=== PATIENT | female | born 1945 | race Caucasian/White ===

== ENCOUNTER → 2018-05-19 14:46 | Outpatient (CLI) | payer MEDICARE, SELFPAY ==
--- NOTE | 2018-05-19 | DI.CT.S_ITS ---
PROCEDURE: CT LUMBAR SPINE WO CON INDICATIONS: LOWER BACK PAIN TECHNIQUE: Noncontrast 3 mm thick sections acquired from the T12 level to the sacrum. Sagittal and coronal reformats were constructed. For radiation dose reduction, the following was used: automated exposure control. COMPARISON: [facility], MR, L-SPINE WITHOUT CONTRAST, 07/14/2012, 17:30. [facility], MR, L-SPINE WITHOUT CONTRAST, 11/14/2015, 16:44. [facility] [place], CR, SPINE LUMB MIN 4VW, 05/06/2017, 17:02. FINDINGS: Image quality: Excellent. Bones: Postsurgical changes compatible with L4-L5 posterior fusion noted. Orthopedic hardware is intact. No lucency is identified at the bone hardware interface. There is mild L1-L2 and L2 on L3 degenerative retrolisthesis. There is mild L3-L4 degenerative anterolisthesis. No acute vertebral body compression fractures. No suspicious lytic or blastic bony lesions. No pars defects. T12-L1: Slight loss of disc height. Mild, diffuse disc bulge. No central stenosis. No neural foraminal narrowing. No definite neural impingement. L1-L2: Disc height is normal. Mild, diffuse disc bulge. Mild bilateral facet hypertrophy. No central stenosis. Mild bilateral neural foraminal narrowing. No definite neural impingement. L2-L3: Loss of disc height. Endplate sclerosis and subchondral cyst formation. Endplate osteophytosis noted. Moderate to severe bilateral facet hypertrophy. Mild ligamentum flavum hypertrophy. Moderate narrowing of the central canal secondary to degenerative spondylolisthesis, disc disease and posterior element hypertrophy. Severe right and [id number] left neural foraminal narrowing secondary to disc and facet disease with marked flattening deformity exiting right L2 nerve root. L3-L4: Loss of disc height. Mild, diffuse disc bulge. Moderate facet hypertrophy. Mild ligamentum flavum hypertrophy. Moderate narrowing of the central canal secondary to disc disease and facet hypertrophy. Moderate to severe bilateral neural foraminal narrowing secondary to disc and facet disease with slight flattening deformity exiting L3 nerve roots bilaterally. L4-L5: Status post fusion. No central stenosis. No neural foraminal narrowing. No definite neural impingement. L5-S1: Loss of disc height. Vacuum disc phenomenon. Endplate sclerosis and subchondral cyst formation noted. Endplate osteophytosis. Mild, diffuse disc bulge. Mild bilateral facet hypertrophy. No central stenosis. Mild right and moderate left neural foraminal narrowing secondary to disc and facet disease. No definite neural impingement. Soft tissues: No retroperitoneal masses or hematomas. Visualized aorta is normal in caliber. IMPRESSION: 1. Status post L4-L5 fusion. 2. Grade I L1-L2, L2-L3 and L3-L4 degenerative spondylolisthesis. 3. Multilevel degenerative disc disease. 4. Multilevel facet arthropathy. 5. Moderate L2-L3 and L3-L4 central canal narrowing. 5. Severe right and moderate to severe left L2-L3 neural foraminal narrowing. Moderate to severe bilateral L3-L4 neural foraminal narrowing. Mild right and moderate left L5-S1 neural foraminal narrowing. Mild bilateral L1-L2 neuroforaminal narrowing. Dictated by: Danni Garcia MD, PhD on 05/19/2018 at 17:40 Approved by: Danni Garcia MD, PhD on 05/20/2018 at 17:58
== END ==
PROVIDERS: Family Provider Family Medicine; PCP Family Medicine; Visit Provider Physical Medicine & Rehabilitation Pain Medicine
DX: M51.36 Other intervertebral disc degeneration, lumbar region (principal); M43.16 Spondylolisthesis, lumbar region; M47.816 Spondylosis without myelopathy or radiculopathy, lumbar region; M48.061 Spinal stenosis, lumbar region without neurogenic claudication; M48.07 Spinal stenosis, lumbosacral region; M54.5 Low back pain
CPT/HCPCS: 72131

== ENCOUNTER → 2018-09-30 09:42 | Outpatient (CLI) | payer MEDICARE, SELFPAY ==
[2018-09-30 10:24] LABS: Add Manual Diff / Slide Review NO; Eosinophils Percent Auto 1.2 % (2-4); Hematocrit 44.5 % (36-46); Hemoglobin 14.8 g/dL (12.0-16.0); Lymphocytes Percent Auto 25.2 % (25-40); Mean Corpuscular HGB Conc 33.2 % (30-36); Mean Corpuscular Hemoglobin 30.9 PG (26-34); Mean Corpuscular Volume 93.1 fL (80-100); Monocytes Percent Auto 8.4 % (3-14); Neutrophils Absolute Auto 3900 /uL (3000-5900); Neutrophils Percent Auto 64.2 % (50-75); Platelet Count 214 X10^3/uL (150-400); Red Blood Cell Count 4.77 X10^6/uL (4.0-5.2); Red Cell Distribution Width 13.6 % (11.6-14.8)
[2018-09-30 11:01] LABS: Alanine Aminotransferase 32 IU/L (9-52); Albumin 4.7 g/dL (3.5-5.0); Albumin Globulin Ratio 1.7 (1.0-2.8); Alkaline Phosphatase 100 U/L (38-126); Aspartate Aminotransferase 34 IU/L (14-36); Bilirubin Total 0.3 mg/dL (0.2-1.3); Blood Urea Nitrogen 21 mg/dL (7-17); Calcium 10.3 mg/dL (8.4-10.2); Carbon Dioxide 28 mmol/L (22-32); Chloride 103 mmol/L (98-107); Cholesterol 208 mg/dL (140-199); Estimated Glomerular Filt Rate 54.1 mL/min (>60); Globulin 2.7 g/dL (1.7-4.1); Glucose 97 mg/dL (80-110); HDL Cholesterol 91 mg/dL (40-60); HEMOLYSIS 15 (0-50); LDL Cholesterol Calculated 89 mg/dL (<100); Potassium 4.5 mmol/L (3.4-5.1); Sodium 142 mmol/L (137-145); Total Protein 7.4 g/dL (6.3-8.2); Triglycerides 141 mg/dL (35-150)
[2018-09-30 11:30] LABS: Thyroid Stimulating Hormone 1.63 uIU/mL (0.47-4.68)
== END ==
PROVIDERS: Family Provider Family Medicine; PCP Family Medicine; Visit Provider Family Medicine
DX: E78.5 Hyperlipidemia, unspecified (principal); I10 Essential (primary) hypertension; Z51.81 Encounter for therapeutic drug level monitoring
CPT/HCPCS: 36415; 80053; 80061; 84443; 85025

== ENCOUNTER 2018-11-26 12:35 | Day surgery (SDC) | payer MEDICARE, SELFPAY ==
[2018-11-19] MEDS: PROPARACAINE 0.5% OPHTH SOL 2 DROPS EYE-OP (13:15)
--- NOTE | 2018-11-23 13:33 | PM.PREOP ---
Pre-operative Note Interval Note History & Physical reviewed/Exam performed by Physician: Yes Changes to H&P: No
--- NOTE | 2018-11-23 13:37 | PM.OP.1 ---
Operative Date/Time/Diagnoses Date of procedure: 11/26/18 Time of procedure: 13:45 Procedure & Clinicians Procedure: Preoperative diagnoses: 1. Complex surgery with use of capsular dye. 2. Mature or advanced nuclear sclerotic ,cortical cataract with advanced posterior subcapsular plaque and poor retinal view. Poor visibility of the anterior capsule increasing surgical risks of complications. 3. Porcine Aortic valve. 4. Anxiety. Postoperative diagnoses: 1. Complex surgery with use of capsular dye and placement of a posterior chamber intraocular lens implant. 2. Need for capsular tension ring for loose zonules. Surgeon: Barbara Camargo MD Complications: none Specimen: None Implant:ZCBOO+23.0 IOL Capsular tension ring Model [id number] OS,Rodriguez Blood loss: None Anesthesia: Retrobulbar with monitored standby. Description of procedure: Dictated by: Barbara Camargo MD Copy to: [facility] Post operative diagnoses: 1. Cataract removed with use of capsular dye with placement of a posterior chamber intraocular lens. Procedure: Phacoemulsification with posterior chamber intraocular lens implant Surgeon: Barbara Camargo MD Blood loss: None Anesthesia: Retrobulbar with monitored standby Description of procedure: Patient has presented with decreased vision due to cataract which is affecting activities of daily living. The patient wants surgery to improve vision. She presents with advanced cataract with dense posterior subcapsular changes dense nuclear sclerotic changes and no previous exams here or ophthalmic records. She has multiple medical conditions including a porcine aortic valve and anxiety disorder. She states she has a high tolerance to pain medication and is worried about intraoperative discomfort. It is felt best to use a retrobulbar anesthetic with monitored standby. The patient was taken to the operating room and given IV sedation. A retrobulbar block consisting of 6 cc of 2% xylocaine without epinephrine mixed half and half with 0.5% Marcaine with 1 cc of hyaluronidase added is placed between the medial and lateral 1/3 of the inferior orbital rim. Lid akinesia is obtain with 1% xylocaine with epinephrine infiltrated along the lid margin. The eye is manually massaged for 30 sec, prepped using Betadine solution, and draped in the usual sterile fashion. Temporal approach was made, a 1 mm side-port incision was performed 90 degrees from the planned corneal wound. Phenylephrine 1.5% mixed with 1% xylocaine 0.2 cc was placed into the anterior chamber. An air bubble was placed and Visudyne dye was placed to improve visibility of the anterior capsule. The dye was irrigated out to reduce bubbles. Viscoat followed by Healon was then placed. A 2.6 mm clear incision with a 2.6 mm blade was placed. A 360 degree capsulorrhexis style capsulotomy was then performed with a cystitome needle on a Healon. Zonules were loose but held intact during the surgery. Hydrodelineation and hydrodissection were performed. The phacoemulsification unit is introduced, and sculpting used to groove the central lens. It is then removed in chopping mode. Epi nucleus is removed with epinuclear mode and irrigation aspiration was used to remove the peripheral cortex. The posterior capsule is gently polished. The intraocular lens is selected, inspected, power confirmed, and placed in the posterior chamber. To improve capsular bag stability a 13 mm capsular tension ring was opened, inspected and inserted into the capsular bag through the inserting device. Excellent centration without complication. Proable pseudoexfoliation syndrome.The pupil was constricted with Miostat. The wound was stromally hydrated and tested for leaks, there was none and was left sutureless. Vigamox 0.1 cc was placed into the anterior chamber. Kenalog 0.2 cc was placed in the superior subconjunctival space. A drop of antibiotic and was placed and the eye was patched and shielded. The patient was stable and returned to the recovery room in excellent condition. Dictated by: Barbara Camargo MD Copy to: [facility] Same procedure as scheduled: No Indications: Used capsular tension ring to improve capsular stability due to findings during surgery. No complications.
[2018-11-26 13:15] VITALS: BP 130/67; PULSE 63; RESP 16; TEMP 36.3; O2SAT 99
[2018-11-26] MEDS: CATARACT EYE COMPOUND (10 DROPS/SYRINGE) 3 DROPS EYE-OP ×3 (13:20→13:30)
[2018-11-26 13:32] VITALS: BMI 23.3
[2018-11-26] MEDS: BALANCED SALT IRRIG SOLN NO.2 15 ML IRR (14:40)
[2018-11-26] MEDS: CARBACHOL 1.5 ML VIAL INJ (14:40)
[2018-11-26] MEDS: HYALURONATE SODIUM 10 MG/ML SYRINGE INJ (14:40)
[2018-11-26] MEDS: CHONDROIDTIN/SOD HYALURONATE 1.05 ML SYRINGE INTRAOCULA (14:40)
[2018-11-26] MEDS: LIDOCAINE 1% W/EPI INJ 20 ML INJ (14:41)
[2018-11-26] MEDS: MOXIFLOXACIN OPHTH DROPS 3 ML BOTTLE 2 DROPS INJ (14:41)
[2018-11-26] MEDS: NEOMYCIN/POLY/DEX OPHTH OINT 1 APPLIC EYE-LEFT (14:42)
[2018-11-26] MEDS: PHENYLEPHRINE/LIDOCAINE VIAL (OR) 0.2 ML EYE-OP (14:42)
[2018-11-26] MEDS: OFLOXACIN 0.3% OPHTH 5 ML 2 DROPS EYE-LEFT (14:42)
[2018-11-26] MEDS: TRYPAN BLUE 0.5 ML SYRINGE INJ (14:43)
[2018-11-26] MEDS: BALANCED SALT IRRIG SOLN NO.2 500 ML, EPINEPHrine 1 MG IRR (14:43)
[2018-11-26] MEDS: TRIAMCINOLONE 50 MG/5 ML VIAL INJ (14:43)
[2018-11-26] MEDS: LIDOCAINE 2% 4 ML, BUPIVACAINE 0.5% (PF) 4 ML, HYALURONIDASE 150 UNIT INJ (14:44)
[2018-11-26 15:10] VITALS: BP 143/73; PULSE 68; RESP 20; TEMP 36.5; O2SAT 100
== END 2018-11-26 15:25 | disposition home or self-care (01) ==
LOC: OR 12:39
PROVIDERS: Family Provider Family Medicine; PCP Family Medicine; Visit Provider Ophthalmology
PROC: (CPT 66982; principal; 2018-11-26 13:45)
DX: H25.12 Age-related nuclear cataract, left eye (principal); F41.9 Anxiety disorder, unspecified; E78.5 Hyperlipidemia, unspecified; I51.9 Heart disease, unspecified
CPT/HCPCS: 66982; J0171; J2250; J3010; J3301; J3470

== ENCOUNTER 2018-12-17 13:36 | Day surgery (SDC) | payer MEDICARE, SELFPAY ==
--- NOTE | 2018-12-04 08:57 | PM.PREOP ---
Pre-operative Note Interval Note History & Physical reviewed/Exam performed by Physician: Yes Changes to H&P: No
--- NOTE | 2018-12-13 14:32 | PM.PREOP ---
Pre-operative Note Interval Note History & Physical reviewed/Exam performed by Physician: Yes Changes to H&P: No
--- NOTE | 2018-12-13 14:32 | PM.OP.1 ---
Operative Date/Time/Diagnoses Date of procedure: 12/17/18 Time of procedure: 13:45 Procedure & Clinicians Procedure: Preoperative diagnoses:1. Mature right nuclear sclerotic and cortical cataract with need for Malyugin ring and capsular dye. 2. History of zonular instability with neeed for a cpasular tension ring.3. Chronic back pain. Postoperative diagnoses:1. Complex cataract removed by phacoemulsification with use of capsular dye and a capsular tension ring with placement of posterior chamber intraocular lens.Procedure: Phacoemulsification with use of capsular dye with placement of a posterior chamber IOL and capsular tension ring. Surgeon: Barbara Camargo MD Complications: None Specimen: None Implant: ZCBOO+22.5. Capsular tension ring. Model:[id number]. Blood loss: None. None Anesthesia: Retrobulbar with monitored standby Description of procedure: Patient presents with a complaint of decreased vision due to cataract which is affecting activities of daily living. The patient wants surgery to improve vision.The patient was taken to the operating room and given IV sedation. A retrobulbar block consisting of 6 cc of 2% xylocaine without epinephrine mixed half and half with 0.5% Marcaine with 1 cc of hyaluronidase added is placed between the medial and lateral 1/3 of the inferior orbital rim. Lid akinesia is obtain with 1% xylocaine with epinephrine infiltrated along the lid margin. The eye is manually massaged for 30 sec, prepped using Betadine solution, and draped in the usual sterile fashion.Temporal approach was made, a 1 mm side-port incision was made 90? from the proposed clear corneal incision position. An air bubble was placed and Visudyne capsular dye was used to improve visibility due to poor red reflex. Phenylephrine 1.5% mixed with 1% xylocaine 0.2 cc was placed into the anterior chamber. Viscoat followed by Healon was then placed. A 2.6 mm clear incision with a 2.6 mm blade was placed. The pupil was adequately dilated and a 360 degree capsulorrhexis style capsulotomy then performed with a cystitome needle on a Healon aided by capsular dye. Zonules were loose but remained intact. Hydrodelineation and hydrodissection were performed. The phacoemulsification unit is introduced, and sculpting notice used to groove the central lens. It is then removed in chopping mode. Epi nucleus is removed with epinuclear mode and irrigation aspiration was used to remove the peripheral cortex. On attempted removal of peripheral cortex it was felt the zonules were weak and therefore the procedure was stopped, and a capsular tension ring inspected and placed into the posterior chamber with additional Viscoat. It was dialed into position in the posterior bag. At this point there is minimal peripheral cortex which was gently removed leaving al amount was trapped by the core of the capsular tension ring. Extra viscoelastic of Healon followed by Provisc was then placed into the posterior chamber. The posterior capsule is polished though a small inferior capsular plaque could not be removed. The intraocular lens is selected, inspected, power confirmed, and placed in the posterior chamber. All viscoelastic was then gently irrigated from the anterior chamber. The pupil was constricted with Miostat. The wound was stromally hydrated and tested for leaks, there was none and it was left sutureless. Vigamox 0.1 cc was placed into the anterior chamber. Kenalog 0.2 cc was placed in the superior subconjunctival space. A drop of antibiotic and was placed and the eye was patched and shielded. The patient was stable and returned to the recovery room in excellent condition.Dictated by: Barbara Camargo MD Copy to: [facility] cancel that
[2018-12-17] MEDS: PROPARACAINE 0.5% OPHTH SOL 2 DROPS EYE-OP (14:10)
[2018-12-17 14:15] VITALS: BP 151/77; PULSE 64; RESP 16; TEMP 36.6; O2SAT 100
[2018-12-17] MEDS: CATARACT EYE COMPOUND (10 DROPS/SYRINGE) 3 DROPS EYE-OP (14:26)
[2018-12-17 14:30] VITALS: BMI 50.7
[2018-12-17 14:36] VITALS: BMI 50.7
[2018-12-17] MEDS: PHENYLEPHRINE/LIDOCAINE VIAL (OR) 0.2 ML EYE-OP (14:59)
[2018-12-17] MEDS: MOXIFLOXACIN OPHTH DROPS 3 ML BOTTLE 2 DROPS INJ (14:59)
[2018-12-17] MEDS: HYALURONATE SODIUM 10 MG/ML SYRINGE INJ (15:00)
[2018-12-17] MEDS: BALANCED SALT IRRIG SOLN NO.2 15 ML IRR (15:00)
[2018-12-17] MEDS: TRIAMCINOLONE 50 MG/5 ML VIAL INJ (15:00)
[2018-12-17] MEDS: CHONDROIDTIN/SOD HYALURONATE 1.05 ML SYRINGE INTRAOCULA ×2 (15:00→15:34)
[2018-12-17] MEDS: TRYPAN BLUE 0.5 ML SYRINGE INJ (15:01)
[2018-12-17] MEDS: NEOMYCIN/POLY/DEX OPHTH OINT 1 APPLIC EYE-RIGHT (15:01)
[2018-12-17] MEDS: OFLOXACIN 0.3% OPHTH 5 ML 2 DROPS EYE-RIGHT (15:01)
[2018-12-17] MEDS: BALANCED SALT IRRIG SOLN NO.2 500 ML, EPINEPHrine 1 MG IRR (15:01)
[2018-12-17] MEDS: LIDOCAINE 2% 4 ML, BUPIVACAINE 0.5% (PF) 4 ML, HYALURONIDASE 150 UNIT INJ (15:02)
[2018-12-17] MEDS: LIDOCAINE 1% W/EPI INJ 20 ML INJ (15:02)
[2018-12-17] MEDS: CARBACHOL 1.5 ML VIAL INJ (15:03)
[2018-12-17 15:45] VITALS: BP 160/84; PULSE 60; RESP 16; TEMP 36.9; O2SAT 100
== END 2018-12-17 15:59 | disposition home or self-care (01) ==
PROVIDERS: PCP Family Medicine; Visit Provider Ophthalmology
PROC: (CPT 66982; principal; 2018-12-17 14:45)
DX: H25.811 Combined forms of age-related cataract, right eye (principal); I10 Essential (primary) hypertension; F41.9 Anxiety disorder, unspecified
CPT/HCPCS: 66982; J0171; J2704; J3301; J3470

== ENCOUNTER → 2019-02-24 15:12 | Outpatient (CLI) | payer MEDICARE, SELFPAY ==
--- NOTE | 2019-02-24 | DI.MG.S_ITS ---
BILATERAL DIGITAL SCREENING MAMMOGRAM 3D/2D WITH CAD: 02/24/2019 CLINICAL: Routine screening. Comparison is made to exams dated: 02/22/2018 mammogram, 11/26/2016 mammogram, and 09/27/2015 mammogram - [facility]. There are scattered fibroglandular elements in both breasts. Current study was also evaluated with a Computer Aided Detection (CAD) system. No significant masses, calcifications, or other findings are seen in either breast. There has been no significant interval change. IMPRESSION: NEGATIVE There is no mammographic evidence of malignancy. A 1 year screening mammogram is recommended. This exam was interpreted at Station ID: [id number]. NOTE: For mammograms, a report in lay terms will be sent to the patient. Approximately 15% of breast malignancies will not be visualized mammographically. In the management of a palpable breast mass, a negative mammogram must not discourage biopsy of a clinically suspicious lesion. Electronically Signed By: Robe vyas/[place]:02/24/2019 18:14:26 letter sent: Normal Exam ACR BI-RADS Category 1: Negative 3341F
== END ==
PROVIDERS: PCP Family Medicine; Visit Provider Family Medicine
DX: Z12.31 Encounter for screening mammogram for malignant neoplasm of breast (principal)
CPT/HCPCS: 77063; 77067

== ENCOUNTER → 2019-04-17 09:54 | Outpatient (CLI) | payer MEDICARE, SELFPAY ==
[2019-04-17 12:22] LABS: Alanine Aminotransferase 23 IU/L (9-52); Albumin 4.8 g/dL (3.5-5.0); Alkaline Phosphatase 123 U/L (38-126); Aspartate Aminotransferase 32 IU/L (14-36); Bilirubin Total 0.3 mg/dL (0.2-1.3); Blood Urea Nitrogen 30 mg/dL (7-17); Calcium 10.3 mg/dL (8.4-10.2); Carbon Dioxide 29 mmol/L (22-32); Chloride 100 mmol/L (98-107); Cholesterol 209 mg/dL (140-199); Estimated Glomerular Filt Rate 54.1 mL/min (>60); Globulin 2.4 g/dL (1.7-4.1); Glucose 99 mg/dL (80-110); HDL Cholesterol 67 mg/dL (40-60); HEMOLYSIS < 15 (0-50); LDL Cholesterol Calculated 99 mg/dL (<100); Sodium 137 mmol/L (137-145); Total Protein 7.2 g/dL (6.3-8.2); Triglycerides 215 mg/dL (35-150)
[2019-04-17 12:25] LABS: Potassium 5.6 mmol/L (3.4-5.1)
[2019-04-17 12:54] LABS: Thyroid Stimulating Hormone 1.92 uIU/mL (0.47-4.68)
== END ==
PROVIDERS: PCP Family Medicine; Visit Provider Family Medicine
DX: E78.5 Hyperlipidemia, unspecified (principal); I10 Essential (primary) hypertension; Z51.81 Encounter for therapeutic drug level monitoring
CPT/HCPCS: 36415; 80053; 80061; 84443

== ENCOUNTER → 2019-04-21 16:33 | Outpatient (CLI) | payer MEDICARE, SELFPAY ==
[2019-04-21 18:23] LABS: Alanine Aminotransferase 22 IU/L (9-52); Albumin 4.8 g/dL (3.5-5.0); Albumin Globulin Ratio 1.7 (1.0-2.8); Alkaline Phosphatase 119 U/L (38-126); Aspartate Aminotransferase 33 IU/L (14-36); BUN Creatinine Ratio 23.6 (6-22); Bilirubin Total 0.3 mg/dL (0.2-1.3); Blood Urea Nitrogen 26 mg/dL (7-17); Calcium 10.4 mg/dL (8.4-10.2); Carbon Dioxide 28 mmol/L (22-32); Chloride 99 mmol/L (98-107); Estimated Glomerular Filt Rate 48.4 mL/min (>60); Globulin 2.8 g/dL (1.7-4.1); Glucose 94 mg/dL (80-110); HEMOLYSIS 19 (0-50); Sodium 136 mmol/L (137-145); Total Protein 7.6 g/dL (6.3-8.2)
== END ==
PROVIDERS: PCP Family Medicine; Visit Provider Family Medicine
DX: E87.5 Hyperkalemia (principal)
CPT/HCPCS: 36415; 80053

== ENCOUNTER 2019-06-25 11:08 | Day surgery (SDC) | payer MEDICARE, SELFPAY ==
--- NOTE | 2019-06-25 | PATH_ITS ---
[facility] Accession Number: [id number] . 01 Material submitted: . esophagus - RANDOM BIOPSIES OF DISTAL ESOPHAGUS . 01 Clinical history: . DYSPHAGIA, UNSPECIFIED . 02 Diagnosis: Random Biopsies, Distal Esophagus: Tissue from squamocolumnar junction mucosa, negative for specialized metaplasia of Cotter's-type esophagus. Chronic inflammation with reactive epithelial changes, but negative for dysplasia and malignancy. Negative for squamous intraepithelial eosinophils. . . MRV/06/26/2019 . 02 Electronically signed: . Taco Babb MD, Pathologist NPI- [id number] . 01 Gross description: . RANDOM BIOPSIES OF DISTAL ESOPHAGUS: Received in formalin are 2 fragment(s) of edwards, soft tissue measuring 0.1 x 0.1 x 0.1 cm to 0.3 x 0.2 x 0.2 cm which is entirely submitted and submitted entirely in 1 cassette(s) /DMC /DMC . 02 Pathologist provided ICD-10: R10.13 . 02 CPT . 285216 Performed at: 01 [facility] [address], [place], [place] [id number] MD Christoph Lin MD Phone: [phone] Performed at: 02 [facility] [address] [place], [place] [id number] MD Lia Montez MD Phone: [phone]
[2019-06-25 12:16] VITALS: BP 156/65; PULSE 57; RESP 14; TEMP 36.9; O2SAT 100; BMI 24.2
--- NOTE | 2019-06-25 12:29 | PM.PREOP ---
Pre-operative Note Interval Note History & Physical reviewed/Exam performed by Physician: Yes Changes to H&P: No ASA Class (for procedural sedation): II
[2019-06-25] MEDS: SODIUM CHLORIDE 0.9% 1,000 ML 200 ML IV (12:39)
[2019-06-25] MEDS: LIDOCAINE 4% SOLN 50 ML 20 ML TOP (13:05)
[2019-06-25] MEDS: fentaNYL 250 MCG/5 ML INJ IV (13:10)
[2019-06-25] MEDS: MIDAZOLAM 5 MG/5 ML VIAL IV (13:10)
--- NOTE | 2019-06-25 13:19 | PM.OP.ENDO ---
Operative Date/Time/Diagnoses Date of procedure: 06/25/19 Time of procedure: 13:19 Pre-op diagnosis: dysphagia Post-op diagnosis: same Procedure & Clinicians Study performed: Esophagoduodenoscopy Same procedure as scheduled: Yes Indications: 73-year-old female with chronic gastroesophageal reflux with recent dysphagia to solid foods. She presents for screening EEG with possible dilation Surgeon: Melvin Chavez Procedure Notes SCOAP/Timeout: performed Procedure in detail: The scope was carefully inserted into the mouth and the posterior oropharynx. It was advanced through the esophagus and into the stomach. The stomach demonstrated mild gastritis. The scope was retroflexed and there was no significant hiatal hernia. The pylorus was inspected and was free of ulcerative disease. The scope was then carefully withdrawn through the esophagus. At the GE junction there was question of Cotter's with some salmon appearing tissue at the Z-line. Several biopsies were taken of this distal esophagus. There was no evidence of stricture within the esophagus the scope passed easily through all of it. The scope was carefully withdrawn after ensuring that the biopsy sites were hemostatic. Patient tolerated procedure well. Sedation minutes: 13 Findings: gastritis Specimen(s): other (Distal esophagus Z line) Impression: Gastritis. Rule out Cotter's. No evidence of esophageal stricture. Post-procedure Recommendations: Reflux diet and Continue medication(s) Disposition: same day surgery
[2019-06-25 13:23] VITALS: BP 169/67; PULSE 70; RESP 14; TEMP 36.1; O2SAT 96
[2019-06-25 13:30] VITALS: BP 162/71; PULSE 64; RESP 14; O2SAT 94
[2019-06-25 13:34] VITALS: BP 158/70; PULSE 64; RESP 14; O2SAT 94
[2019-06-25 13:38] VITALS: BP 149/65; PULSE 64; RESP 16; O2SAT 94
[2019-06-25 13:45] VITALS: BP 136/66; PULSE 66; RESP 16; TEMP 36.7; O2SAT 100
--- NOTE | 2019-06-25 15:23 | SUR.PHASEII ---
1820 Dr Chavez talked with pt before discharge, assessed belly. Pt left when ready and left in stable condition.
== END 2019-06-25 13:55 | disposition home or self-care (01) ==
PROVIDERS: Family Provider Family Medicine; PCP Family Medicine; Visit Provider Surgery
PROC: 0DJ08ZZ Inspection of Upper Intestinal Tract, Via Natural or Artificial Opening Endoscopic (ICD-10-PCS; CPT 43235; principal; 2019-06-25 12:30)
DX: K29.70 Gastritis, unspecified, without bleeding (principal); I25.10 Atherosclerotic heart disease of native coronary artery without angina pectoris; E78.5 Hyperlipidemia, unspecified; I10 Essential (primary) hypertension; K58.9 Irritable bowel syndrome, unspecified
CPT/HCPCS: 43239; 88305; 99152; J2250; J3010

== ENCOUNTER → 2019-10-17 11:00 | Outpatient (CLI) | payer MEDICARE, SELFPAY ==
[2019-10-17 12:02] LABS: Hematocrit 42.3 % (36-46); Hemoglobin 14.1 g/dL (12.0-16.0); Mean Corpuscular HGB Conc 33.4 % (30-36); Mean Corpuscular Volume 92.8 fL (80-100); Platelet Count 217 X10^3/uL (150-400); Red Blood Cell Count 4.55 X10^6/uL (4.0-5.2); Red Cell Distribution Width 13.6 % (11.6-14.8); White Blood Cell Count 6.8 X10^3/uL (4.5-11.0)
[2019-10-17 12:22] LABS: Alanine Aminotransferase 17 IU/L (<35); Albumin 4.8 g/dL (3.5-5.0); Alkaline Phosphatase 112 U/L (38-126); Aspartate Aminotransferase 29 IU/L (14-36); BUN Creatinine Ratio 22.3 (6-22); Bilirubin Total 0.5 mg/dL (0.2-1.3); Blood Urea Nitrogen 29 mg/dL (7-17); Calcium 10.4 mg/dL (8.4-10.2); Carbon Dioxide 27 mmol/L (22-32); Chloride 103 mmol/L (98-107); Cholesterol 193 mg/dL (140-199); Estimated Glomerular Filt Rate 39.8 mL/min (>60); Globulin 2.4 g/dL (1.7-4.1); Glucose 102 mg/dL (80-110); HDL Cholesterol 53 mg/dL (40-60); HEMOLYSIS < 15 (0-50); LDL Cholesterol Calculated 99 mg/dL (<100); Sodium 140 mmol/L (137-145); Total Protein 7.2 g/dL (6.3-8.2); Triglycerides 206 mg/dL (35-150)
[2019-10-17 12:40] LABS: Neutrophils Absolute Manual 4148 /uL (3000-5900); RBC Morphology Normal Morphology; Total Cells Counted 100
[2019-10-17 12:42] LABS: Potassium 5.4 mmol/L (3.4-5.1)
[2019-10-17 12:52] LABS: Thyroid Stimulating Hormone 2.36 uIU/mL (0.47-4.68)
== END ==
PROVIDERS: Family Provider Family Medicine; PCP Family Medicine; Visit Provider Family Medicine
DX: E78.5 Hyperlipidemia, unspecified (principal); I10 Essential (primary) hypertension
CPT/HCPCS: 36415; 80053; 80061; 84443; 85025

== ENCOUNTER → 2020-06-21 09:47 | Outpatient (CLI) | payer MEDICARE, SELFPAY ==
[2020-06-21 12:20] LABS: BUN Creatinine Ratio 17.3 (6-22); Blood Urea Nitrogen 18 mg/dL (7-17); Calcium 10.1 mg/dL (8.4-10.2); Carbon Dioxide 29 mmol/L (22-32); Chloride 100 mmol/L (98-107); Estimated Glomerular Filt Rate 51.5 mL/min (>60); Glucose 92 mg/dL (80-110); HEMOLYSIS < 15 (0-50); Potassium 5.4 mmol/L (3.4-5.1); Sodium 134 mmol/L (137-145)
[2020-06-22 07:36] LABS: Calcium 9.9 mg/dL (8.7-10.3); Parathyroid Hormone, Intact 72 pg/mL (15-65)
== END ==
PROVIDERS: Family Provider Family Medicine; PCP Family Medicine; Referring Provider Family Medicine; Visit Provider Family Medicine
DX: E83.52 Hypercalcemia (principal); E87.5 Hyperkalemia
CPT/HCPCS: 36415; 80048; 82310; 83970

== ENCOUNTER → 2020-07-30 09:28 | Outpatient (CLI) | payer MEDICARE, SELFPAY ==
[2020-07-30 11:23] LABS: BUN Creatinine Ratio 26.8 (6-22); Blood Urea Nitrogen 26 mg/dL (7-17); Calcium 9.9 mg/dL (8.4-10.2); Carbon Dioxide 29 mmol/L (22-32); Chloride 102 mmol/L (98-107); Cholesterol 193 mg/dL (140-199); Estimated Glomerular Filt Rate 55.8 mL/min (>60); Glucose 91 mg/dL (80-110); HDL Cholesterol 56 mg/dL (40-60); HEMOLYSIS 16 (0-50); LDL Cholesterol Calculated 81 mg/dL (<100); Potassium 4.8 mmol/L (3.4-5.1); Sodium 137 mmol/L (137-145); Triglycerides 279 mg/dL (35-150)
[2020-07-30 11:52] LABS: TSH w/ Reflex to FT4 2.93 uIU/mL (0.47-4.68)
[2020-07-31 08:36] LABS: Parathyroid Hormone Int 54 pg/mL (15-65)
== END ==
PROVIDERS: Family Provider Family Medicine; PCP Family Medicine; Referring Provider Family Medicine; Visit Provider Family Medicine
DX: E21.0 Primary hyperparathyroidism (principal); E83.52 Hypercalcemia; E87.5 Hyperkalemia; L65.9 Nonscarring hair loss, unspecified; E78.5 Hyperlipidemia, unspecified
CPT/HCPCS: 36415; 80048; 80061; 83970; 84443

== ENCOUNTER → 2020-10-15 14:54 | Outpatient (CLI) | payer MEDICARE, SELFPAY ==
--- NOTE | 2020-10-15 14:56 | DI.MG.S_ITS ---
BILATERAL DIGITAL SCREENING MAMMOGRAM 3D/2D WITH CAD: 10/15/2020 CLINICAL: Routine screening. Comparison is made to exams dated: 02/24/2019 mammogram, 02/22/2018 mammogram, and 11/26/2016 mammogram - [facility]. There are scattered fibroglandular elements in both breasts. Current study was also evaluated with a Computer Aided Detection (CAD) system. No significant masses, calcifications, or other findings are seen in either breast. There has been no significant interval change. IMPRESSION: NEGATIVE There is no mammographic evidence of malignancy. A 1 year screening mammogram is recommended. This exam was interpreted at Station ID: [id number]. NOTE: For mammograms, a report in lay terms will be sent to the patient. Approximately 15% of breast malignancies will not be visualized mammographically. In the management of a palpable breast mass, a negative mammogram must not discourage biopsy of a clinically suspicious lesion. Electronically Signed By: Robe vyas/[place]:10/17/2020 07:55:58 letter sent: Normal Exam ACR BI-RADS Category 1: Negative [id number]
== END ==
PROVIDERS: Family Provider Family Medicine; PCP Family Medicine; Referring Provider Family Medicine; Visit Provider Family Medicine
DX: Z12.31 Encounter for screening mammogram for malignant neoplasm of breast (principal)
CPT/HCPCS: 77063; 77067

== ENCOUNTER → 2020-12-16 14:32 | Outpatient (CLI) | payer MEDICARE, SELFPAY ==
--- NOTE | 2020-12-16 14:33 | DI.RAD.S_ITS ---
PROCEDURE: XR DEXA AXIAL SKELETON INDICATIONS: Post Menopause COMPARISON: None. FINDINGS: This blank DEXA report has been sent in error by the PACS system. The correct and complete report will be forthcoming in 1-2 days. Thank you for your patience and understanding. Dictated by: Danni Garcia MD, PhD on 12/16/2020 at 16:54 Approved by: Danni Garcia MD, PhD on 12/16/2020 at 16:54
== END ==
PROVIDERS: Family Provider Family Medicine; PCP Family Medicine; Referring Provider Family Medicine; Visit Provider Family Medicine
DX: M85.851 Other specified disorders of bone density and structure, right thigh (principal); Z78.0 Asymptomatic menopausal state; Z90.722 Acquired absence of ovaries, bilateral; Z82.62 Family history of osteoporosis
CPT/HCPCS: 77080

== ENCOUNTER → 2021-01-09 15:33 | Outpatient (CLI) | payer MEDICARE, SELFPAY ==
[2021-01-09] MEDS: COVID-19 VACC, Ad26(JANSSEN)/PF 0.5 ML IM (15:43)
== END ==
PROVIDERS: Family Provider Family Medicine; PCP Family Medicine; Visit Provider Internal Medicine
DX: Z23 Encounter for immunization (principal)
CPT/HCPCS: 0031A; 91303

== ENCOUNTER → 2021-02-21 15:26 | Outpatient (CLI) | payer MEDICARE, SELFPAY ==
[2021-02-21 17:25] LABS: BUN Creatinine Ratio 32.4 (6-22); Blood Urea Nitrogen 34 mg/dL (7-17); Calcium 10.4 mg/dL (8.4-10.2); Carbon Dioxide 24 mmol/L (22-32); Chloride 96 mmol/L (98-107); Estimated Glomerular Filt Rate 50.8 mL/min (>60); Glucose 87 mg/dL (80-110); HEMOLYSIS < 15 (0-50); Potassium 5.1 mmol/L (3.4-5.1); Sodium 131 mmol/L (137-145)
== END ==
PROVIDERS: Family Provider Family Medicine; PCP Family Medicine; Referring Provider Internal Medicine; Visit Provider Internal Medicine
DX: I10 Essential (primary) hypertension (principal)
CPT/HCPCS: 36415; 80048

== ENCOUNTER → 2021-03-08 16:22 | Outpatient (CLI) | payer MEDICARE, SELFPAY ==
[2021-03-08 17:59] LABS: BUN Creatinine Ratio 24.5 (6-22); Blood Urea Nitrogen 27 mg/dL (7-17); Calcium 10.2 mg/dL (8.4-10.2); Carbon Dioxide 26 mmol/L (22-32); Chloride 98 mmol/L (98-107); Estimated Glomerular Filt Rate 48.2 mL/min (>60); Glucose 101 mg/dL (80-110); HEMOLYSIS < 15 (0-50); Sodium 132 mmol/L (137-145)
== END ==
PROVIDERS: Internal Medicine; Family Provider Family Medicine; PCP Family Medicine; Referring Provider Family Medicine; Visit Provider Family Medicine
DX: I10 Essential (primary) hypertension (principal)
CPT/HCPCS: 36415; 80048

== ENCOUNTER → 2021-04-15 10:29 | Outpatient (CLI) | payer MEDICARE, SELFPAY ==
[2021-04-15 11:58] LABS: Alanine Aminotransferase 33 IU/L (<35); Albumin 4.3 g/dL (3.5-5.0); Albumin Globulin Ratio 1.9 (1.0-2.8); Alkaline Phosphatase 112 U/L (38-126); Aspartate Aminotransferase 40 IU/L (14-36); BUN Creatinine Ratio 22.6 (6-22); Bilirubin Total 0.2 mg/dL (0.2-1.3); Blood Urea Nitrogen 21 mg/dL (7-17); Calcium 10.4 mg/dL (8.4-10.2); Carbon Dioxide 26 mmol/L (22-32); Chloride 101 mmol/L (98-107); Cholesterol 143 mg/dL (140-199); Estimated Glomerular Filt Rate 58.5 mL/min (>60); Globulin 2.3 g/dL (1.7-4.1); Glucose 92 mg/dL (80-110); HDL Cholesterol 69 mg/dL (40-60); HEMOLYSIS < 15 (0-50); LDL Cholesterol Calculated 44 mg/dL (<100); Sodium 135 mmol/L (137-145); Total Protein 6.6 g/dL (6.3-8.2); Triglycerides 148 mg/dL (35-150)
[2021-04-15 12:04] LABS: Microalbumin Urine Random 3.2 mg/dL (0-1.6)
== END ==
PROVIDERS: Family Provider Family Medicine; PCP Family Medicine; Referring Provider Internal Medicine; Visit Provider Internal Medicine
DX: I25.10 Atherosclerotic heart disease of native coronary artery without angina pectoris (principal); I10 Essential (primary) hypertension; N18.30 Chronic kidney disease, stage 3 unspecified
CPT/HCPCS: 36415; 80053; 80061; 82043; 82570

== ENCOUNTER → 2021-05-25 13:25 | Outpatient (CLI) | payer MEDICARE, SELFPAY ==
[2021-05-25 14:06] LABS: BUN Creatinine Ratio 24.5 (6-22); Blood Urea Nitrogen 24 mg/dL (7-17); Calcium 10.2 mg/dL (8.4-10.2); Carbon Dioxide 25 mmol/L (22-32); Chloride 101 mmol/L (98-107); Glucose 105 mg/dL (80-110); HEMOLYSIS < 15 (0-50); Sodium 134 mmol/L (137-145)
[2021-05-25 14:08] LABS: Potassium 5.4 mmol/L (3.4-5.1)
== END ==
PROVIDERS: PCP Family Medicine; Referring Provider Internal Medicine; Visit Provider Internal Medicine
DX: E87.5 Hyperkalemia (principal)
CPT/HCPCS: 36415; 80048

== ENCOUNTER → 2021-06-19 16:06 | Outpatient (CLI) | payer MEDICARE, SELFPAY ==
[2021-06-19 17:10] LABS: Alanine Aminotransferase 128 IU/L (<35); Albumin 4.4 g/dL (3.5-5.0); Albumin Globulin Ratio 1.7 (1.0-2.8); Alkaline Phosphatase 212 U/L (38-126); Aspartate Aminotransferase 121 IU/L (14-36); Bilirubin Total 0.2 mg/dL (0.2-1.3); Blood Urea Nitrogen 18 mg/dL (7-17); Calcium 10.2 mg/dL (8.4-10.2); Carbon Dioxide 27 mmol/L (22-32); Chloride 103 mmol/L (98-107); Estimated Glomerular Filt Rate > 60.0 mL/min (>60); Globulin 2.6 g/dL (1.7-4.1); Glucose 104 mg/dL (80-110); HEMOLYSIS < 15 (0-50); Magnesium 1.8 mg/dL (1.6-2.3); Potassium 4.4 mmol/L (3.4-5.1); Sodium 135 mmol/L (137-145)
[2021-06-19 17:46] LABS: Creatinine Urine Random 24.6 mg/dL
[2021-06-19 17:51] LABS: Microalbumin Urine Random < 0.6 mg/dL (0-1.6)
[2021-06-20 14:36] LABS: Calcium 10.1 mg/dL (8.7-10.3); Parathyroid Hormone, Intact 76 pg/mL (15-65)
== END ==
PROVIDERS: PCP Family Medicine; Referring Provider Family Medicine; Visit Provider Family Medicine
DX: E21.0 Primary hyperparathyroidism (principal); E83.52 Hypercalcemia; E87.5 Hyperkalemia; N18.30 Chronic kidney disease, stage 3 unspecified; E87.6 Hypokalemia
CPT/HCPCS: 36415; 80053; 82043; 82310; 82570; 83735; 83970

== ENCOUNTER → 2021-07-10 14:24 | Outpatient (CLI) | payer MEDICARE, SELFPAY ==
[2021-07-10 15:52] LABS: Alanine Aminotransferase 41 IU/L (<35); Albumin 4.7 g/dL (3.5-5.0); Alkaline Phosphatase 130 U/L (38-126); Aspartate Aminotransferase 44 IU/L (14-36); BUN Creatinine Ratio 21.8 (6-22); Bilirubin Total 0.2 mg/dL (0.2-1.3); Blood Urea Nitrogen 24 mg/dL (7-17); Calcium 10.5 mg/dL (8.4-10.2); Carbon Dioxide 30 mmol/L (22-32); Chloride 96 mmol/L (98-107); Estimated Glomerular Filt Rate 48.2 mL/min (>60); Globulin 2.4 g/dL (1.7-4.1); Glucose 99 mg/dL (80-110); HEMOLYSIS < 15 (0-50); Sodium 133 mmol/L (137-145); Total Protein 7.1 g/dL (6.3-8.2)
== END ==
PROVIDERS: PCP Family Medicine; Referring Provider Family Medicine; Visit Provider Family Medicine
DX: R79.89 Other specified abnormal findings of blood chemistry (principal); E83.52 Hypercalcemia
CPT/HCPCS: 36415; 80053

== ENCOUNTER 2021-07-20 15:15 | Outpatient (RCR) | payer MEDICARE, SELFPAY ==
[2021-06-01 16:00] VITALS: BP 182/82
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
--- NOTE | 2021-06-01 16:00 | PT.OPPOC ---
Physical, Occupational & Speech Therapy At [facility] Current Diagnoses Pain in left hip (06/01/21) Other muscle spasm (06/01/21) Difficulty in walking, not elsewhere classified (06/01/21) Visit Care Team Role Provider Type Sharon Calvert DO Attending Provider Physician Primary Care Provider Referring Provider Specialty: [facility] Address: [address] [place] [address], [address], [facility] Email: [email or web address] Plan Of Care PT-OP-T Assessment and Plan Start: 06/01/21 08:35 Freq: Status: Active Protocol: Document 06/01/21 16:00 AW (Rec: 06/04/21 12:41 AW [id number]) Physical Therapy Assessment Rehab Potential Rehabilitation Potential Good Evaluation Complexity Number of Personal Factors/Comorbidities 1-2 Number of Body Systems Impaired 1-2 Clinical Presentation at Evaluation Stable Impairments Impairments Activity Tolerance,Balance, Functional Activities, Functional Mobility,Gait,Pain, Posture,ROM,Sensation,Soft Tissue Mobility,Strength, Transfers Other Concerns Fall Risk high per DGI score of 10/20 Goals Four Impairment LEFS Short Term Goal (STG) Pt will improve LEFS from 18/ 80 to 27/80 or greater for improved daily function. STG Duration 6 weeks - 07/13/21 Shipping Support Clerk Goal (LTG) Pt will improve LEFS from 18/ 80 to 40/80 or greater for improved daily function. LTG Duration 12 weeks - 08/24/21 Three Impairment strength Short Term Goal (STG) Pt will improve all LE strength by at least 1/2 MMT grade. STG Duration 6 weeks - 07/13/21 Group Home Goal (LTG) Pt will complete 5 Time Sit to Stand without UE support in 14 seconds or less to demonstrate improved functional strength. LTG Duration 12 weeks - 08/24/21 Two Impairment balance and falls risk Short Term Goal (STG) Pt will improve DGI score from 10/20 to to demonstrate reduction in falls risk. STG Duration 6 weeks - 07/13/21 Shipping Support Clerk Goal (LTG) Pt will improve DGI score from 10/20 to for classification in a lower fall risk category. LTG Duration 12 weeks - 08/24/21 One Impairment lacks HEP Short Term Goal (STG) Pt will be independent with HEP for support of therapy services provided in clinic. STG Duration 4 weeks - 06/29/21 Shipping Support Clerk Goal (LTG) Pt will be independent with HEP for strength progression and pain management. LTG Duration 12 weeks - 08/24/21 Assessment Summary Assessment Fox is a 75 yo woman who attends outpatient physical therapy with complaints of left lower extremity pain most significantly in her hip. Pt has history of lumbar surgery, meniscus surgery, and left TKA. She presents with generalized weakness and pain in bilateral lower extremities and impaired dynamic balance as evidenced by a score of 12/ 24 on Dynamic Gait Index. She is expected to benefit from outpatient PT to address these impairments, to improve her ability to function safely, reduce her falls risk, and mitigiate the risks of immobility which may be associated with her pain presentation. Physical Therapy Plan Frequency and Duration Frequency of Treatment 1-2x/week Duration of Treatment 12 weeks Plan of Care Start Date 06/01/21 Plan of Care End Date 08/24/21 Therapeutic Interventions Therapeutic Interventions Aquatic Therapy,Balance Training,Gait Training,Home Exercise Program,Joint Mobilizations,Manual Therapy, Neuromuscular Re-education, Patient/Caregiver Education, Self-Care/Home Management, Sensory Integration,Soft Tissue Mobilization,Taping, Therapeutic Activities, Therapeutic Exercises Modalities Cold Pack/Ice Massage,Electric Stimulation,Hot Packs Next Visit Focus/Plan Next Note Type Treatment Note Next Visit Plan Initiate STM for pain management and strengthening for bilateral LE in supported position Plan of Care Dates Plan of Care Start Date 06/01/21 Plan of Care End Date 08/24/21 Electronically Signed by: Shima Gaspar, PT 06/04/21 1467 Please Sign and Return: I have reviewed this Plan of Care and certify that the skilled therapy services above are required to meet the patient?s needs. Physician Signature Date Printed Name and Credentials Clinical Instructor Signature Printed Name and Credentials
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
== END 2021-11-28 08:56 ==
LOC: PHYS 15:15
PROVIDERS: PCP Family Medicine; Referring Provider Family Medicine; Visit Provider Family Medicine
DX: M25.552 Pain in left hip (principal); M62.838 Other muscle spasm; R26.2 Difficulty in walking, not elsewhere classified
CPT/HCPCS: 97110; 97116; 97140; 97162; 97530

== ENCOUNTER → 2021-08-07 16:30 | Outpatient (CLI) | payer MEDICARE, SELFPAY ==
[2021-08-07 17:19] LABS: Alanine Aminotransferase 37 IU/L (<35); Albumin 4.6 g/dL (3.5-5.0); Albumin Globulin Ratio 1.8 (1.0-2.8); Alkaline Phosphatase 120 U/L (38-126); Aspartate Aminotransferase 43 IU/L (14-36); BUN Creatinine Ratio 30.6 (6-22); Bilirubin Total 0.2 mg/dL (0.2-1.3); Blood Urea Nitrogen 26 mg/dL (7-17); Calcium 10.3 mg/dL (8.4-10.2); Carbon Dioxide 28 mmol/L (22-32); Chloride 101 mmol/L (98-107); Estimated Glomerular Filt Rate > 60.0 mL/min (>60); Globulin 2.6 g/dL (1.7-4.1); Glucose 98 mg/dL (80-110); HEMOLYSIS < 15 (0-50); Potassium 4.6 mmol/L (3.4-5.1); Sodium 135 mmol/L (137-145); Total Protein 7.2 g/dL (6.3-8.2)
== END ==
PROVIDERS: PCP Family Medicine; Referring Provider Family Medicine; Visit Provider Family Medicine
DX: E83.52 Hypercalcemia (principal); R79.89 Other specified abnormal findings of blood chemistry; N18.30 Chronic kidney disease, stage 3 unspecified
CPT/HCPCS: 36415; 80053

== ENCOUNTER → 2021-09-01 14:53 | Outpatient (CLI) | payer MEDICARE, SELFPAY ==
[2021-09-01 17:09] LABS: Alanine Aminotransferase 34 IU/L (<35); Albumin 4.7 g/dL (3.5-5.0); Albumin Globulin Ratio 1.9 (1.0-2.8); Alkaline Phosphatase 107 U/L (38-126); Aspartate Aminotransferase 42 IU/L (14-36); BUN Creatinine Ratio 21.7 (6-22); Bilirubin Total 0.3 mg/dL (0.2-1.3); Blood Urea Nitrogen 23 mg/dL (7-17); Calcium 10.6 mg/dL (8.4-10.2); Carbon Dioxide 24 mmol/L (22-32); Chloride 101 mmol/L (98-107); Estimated Glomerular Filt Rate 50.3 mL/min (>60); Globulin 2.5 g/dL (1.7-4.1); Glucose 97 mg/dL (80-110); HEMOLYSIS < 15 (0-50); Sodium 134 mmol/L (137-145); Total Protein 7.2 g/dL (6.3-8.2)
[2021-09-01 17:14] LABS: Potassium 5.4 mmol/L (3.4-5.1)
== END ==
PROVIDERS: PCP Family Medicine; Referring Provider Family Medicine; Visit Provider Family Medicine
DX: E83.52 Hypercalcemia (principal); I10 Essential (primary) hypertension; N18.30 Chronic kidney disease, stage 3 unspecified; R79.89 Other specified abnormal findings of blood chemistry
CPT/HCPCS: 36415; 80053

== ENCOUNTER → 2021-09-08 14:25 | Outpatient (CLI) | payer MEDICARE, SELFPAY ==
[2021-09-08] MEDS: COVID-19 VACC #3, MRNA(MOD) 50 MCG/0.25 ML VIAL IM (14:29)
== END ==
PROVIDERS: PCP Family Medicine; Visit Provider Internal Medicine
DX: Z23 Encounter for immunization (principal)
CPT/HCPCS: 0013A; 91301

== ENCOUNTER → 2021-09-26 13:09 | Outpatient (CLI) | payer MEDICARE, SELFPAY ==
[2021-09-26 14:03] LABS: Appearance Urine UA CLEAR; Bilirubin Urine UA NEGATIVE (NEGATIVE); Color Urine UA YELLOW; Glucose Urine UA NEGATIVE (Negative); Ketones Urine UA NEGATIVE (NEGATIVE); Leukocyte Esterase Urine UA 1+ (NEGATIVE); Nitrite Urine UA NEGATIVE (Negative); Occult Blood Urine UA NEGATIVE (Negative); Protein Urine UA TRACE (Negative); Specific Gravity Urine UA 1.015 (1.000-1.035); Urobilinogen Urine UA 0.2 E.U./dL (0.2)
[2021-09-26 14:09] LABS: Bacteria Urine None Seen; Culture Indicated Urine Specimen Cultured; RBC Urine None Seen (0-5/HPF); WBC Urine 1-5/HPF (0-5/HPF)
[2021-09-26 14:59] LABS: Alanine Aminotransferase 50 IU/L (<35); Albumin 4.9 g/dL (3.5-5.0); Albumin Globulin Ratio 1.9 (1.0-2.8); Alkaline Phosphatase 120 U/L (38-126); Aspartate Aminotransferase 49 IU/L (14-36); BUN Creatinine Ratio 23.2 (6-22); Bilirubin Total 0.5 mg/dL (0.2-1.3); Blood Urea Nitrogen 26 mg/dL (7-17); Calcium 10.8 mg/dL (8.4-10.2); Carbon Dioxide 27 mmol/L (22-32); Chloride 94 mmol/L (98-107); Globulin 2.6 g/dL (1.7-4.1); Glucose 107 mg/dL (80-110); HEMOLYSIS < 15 (0-50); Potassium 4.7 mmol/L (3.4-5.1); Sodium 135 mmol/L (137-145); Total Protein 7.5 g/dL (6.3-8.2)
[2021-09-26 15:40] LABS: Creatinine Urine Random 107.5 mg/dL
[2021-09-26 15:42] LABS: Microalbumi Creatinin Ratio Ur 76.2 ug/mg CR (<30); Microalbumin Urine Random 8.2 mg/dL (0-1.6)
== END ==
PROVIDERS: PCP Family Medicine; Referring Provider Family Medicine; Visit Provider Family Medicine
DX: R79.89 Other specified abnormal findings of blood chemistry (principal); E83.52 Hypercalcemia; I10 Essential (primary) hypertension
CPT/HCPCS: 36415; 80053; 81001; 82043; 82570; 87086

== ENCOUNTER → 2021-10-17 15:13 | Outpatient (CLI) | payer MEDICARE, SELFPAY ==
--- NOTE | 2021-10-17 | DI.MG.S_ITS ---
BILATERAL DIGITAL SCREENING MAMMOGRAM 3D/2D WITH CAD: 10/17/2021 CLINICAL: Routine screening. Comparison is made to exams dated: 10/15/2020 mammogram, 02/24/2019 mammogram, and 02/22/2018 mammogram - [facility]. There are scattered fibroglandular elements in both breasts. Current study was also evaluated with a Computer Aided Detection (CAD) system. No significant masses, calcifications, or other findings are seen in either breast. There has been no significant interval change. IMPRESSION: NEGATIVE There is no mammographic evidence of malignancy. A 1 year screening mammogram is recommended. This exam was interpreted at Station ID: [id number]. NOTE: For mammograms, a report in lay terms will be sent to the patient. Approximately 15% of breast malignancies will not be visualized mammographically. In the management of a palpable breast mass, a negative mammogram must not discourage biopsy of a clinically suspicious lesion. Electronically Signed By: Christoph paz/[place]:10/17/2021 16:48:10 letter sent: Normal Exam ACR BI-RADS Category 1: Negative [id number]
== END ==
PROVIDERS: PCP Family Medicine; Referring Provider Family Medicine; Visit Provider Family Medicine
DX: Z12.31 Encounter for screening mammogram for malignant neoplasm of breast (principal)
CPT/HCPCS: 77063; 77067

== ENCOUNTER → 2021-10-17 15:57 | Outpatient (CLI) | payer MEDICARE, SELFPAY ==
[2021-10-17 16:51] LABS: COVID19 -Nasal RAPID Negative (Negative)
== END ==
PROVIDERS: PCP Family Medicine; Visit Provider Nurse Practitioner Family
DX: Z20.822 Contact with and (suspected) exposure to COVID-19 (principal)
CPT/HCPCS: 87635

== ENCOUNTER → 2021-10-18 13:25 | Outpatient (CLI) | payer MEDICARE, SELFPAY ==
[2021-10-18 14:41] LABS: Alanine Aminotransferase 30 IU/L (<35); Albumin 4.7 g/dL (3.5-5.0); Albumin Globulin Ratio 2.1 (1.0-2.8); Alkaline Phosphatase 97 U/L (38-126); Aspartate Aminotransferase 38 IU/L (14-36); BUN Creatinine Ratio 25.7 (6-22); Bilirubin Total 0.4 mg/dL (0.2-1.3); Blood Urea Nitrogen 26 mg/dL (7-17); Calcium 10.5 mg/dL (8.4-10.2); Carbon Dioxide 29 mmol/L (22-32); Chloride 97 mmol/L (98-107); Globulin 2.2 g/dL (1.7-4.1); Glucose 106 mg/dL (80-110); HEMOLYSIS < 15 (0-50); Potassium 4.8 mmol/L (3.4-5.1); Sodium 133 mmol/L (137-145); Total Protein 6.9 g/dL (6.3-8.2)
[2021-10-18 17:34] LABS: Creatinine Urine Random 73.2 mg/dL
[2021-10-18 17:38] LABS: Microalbumi Creatinin Ratio Ur 50.5 ug/mg CR (<30); Microalbumin Urine Random 3.7 mg/dL (0-1.6)
== END ==
PROVIDERS: PCP Family Medicine; Referring Provider Family Medicine; Visit Provider Family Medicine
DX: E87.5 Hyperkalemia (principal); R79.89 Other specified abnormal findings of blood chemistry; I10 Essential (primary) hypertension
CPT/HCPCS: 36415; 80053; 82043; 82570

== ENCOUNTER → 2021-11-10 12:30 | Outpatient (CLI) | payer MEDICARE, SELFPAY ==
[2021-11-10 19:17] LABS: COVID19 -Nasal RAPID Negative (Negative)
== END ==
PROVIDERS: PCP Family Medicine; Visit Provider Nurse Practitioner Family
DX: Z20.822 Contact with and (suspected) exposure to COVID-19 (principal); J02.9 Acute pharyngitis, unspecified
CPT/HCPCS: 87635

== ENCOUNTER → 2021-11-14 13:27 | Outpatient (CLI) | payer MEDICARE, SELFPAY ==
[2021-11-14 14:52] LABS: Alanine Aminotransferase 28 IU/L (<35); Albumin 4.8 g/dL (3.5-5.0); Albumin Globulin Ratio 1.6 (1.0-2.8); Alkaline Phosphatase 90 U/L (38-126); Aspartate Aminotransferase 38 IU/L (14-36); BUN Creatinine Ratio 20.4 (6-22); Bilirubin Total 0.4 mg/dL (0.2-1.3); Blood Urea Nitrogen 22 mg/dL (7-17); Calcium 10.8 mg/dL (8.4-10.2); Carbon Dioxide 29 mmol/L (22-32); Chloride 100 mmol/L (98-107); Estimated Glomerular Filt Rate 49.1 mL/min (>60); Glucose 111 mg/dL (80-110); HEMOLYSIS < 15 (0-50); Potassium 4.9 mmol/L (3.4-5.1); Sodium 136 mmol/L (137-145); Total Protein 7.8 g/dL (6.3-8.2)
[2021-11-14 15:11] LABS: Creatinine Urine Random 181.3 mg/dL
[2021-11-14 15:17] LABS: Microalbumin Urine Random 12.7 mg/dL (0-1.6)
== END ==
PROVIDERS: PCP Family Medicine; Referring Provider Family Medicine; Visit Provider Family Medicine
DX: E83.52 Hypercalcemia (principal); E87.5 Hyperkalemia; R79.89 Other specified abnormal findings of blood chemistry; N18.30 Chronic kidney disease, stage 3 unspecified
CPT/HCPCS: 36415; 80053; 82043; 82570

== ENCOUNTER → 2021-11-15 15:00 | Outpatient (CLI) | payer MEDICARE, SELFPAY ==
[2021-11-15 15:50] LABS: COVID19 -Nasal RAPID Negative (Negative)
== END ==
PROVIDERS: PCP Family Medicine; Referring Provider Family Medicine; Visit Provider Family Medicine
DX: Z20.822 Contact with and (suspected) exposure to COVID-19 (principal); J02.9 Acute pharyngitis, unspecified
CPT/HCPCS: 87070; 87635